=== PATIENT | male | born 1995 ===

== ENCOUNTER 2018-06-24 18:02 | Emergency (ER) | payer MEDICAID ==
[2018-06-24 19:34] VITALS: BP 125/64; PULSE 62; RESP 16; TEMP 98.7; O2SAT 99
--- NOTE | 2018-06-24 19:51 | ED PDOC ---
HPI: Male Pain Time Seen by Provider: 06/24/18 19:33 Chief Complaint (Nursing): Groin Pain Chief Complaint (Provider): Groin Pain History Per: Patient History/Exam Limitations: no limitations Onset/Duration Of Symptoms: Days (few days) Additional Complaint(s): 23 year old male with no past medical history presents to the ED with right sided groin pain. Patient states that he has had this pain for a few days. Patient states that it bothers him when he walks, and any movement that involves lower extremity. Patient denies penile discharge, irritation, trouble urinating, fever, nausea, and vomiting. PMD: Jacquelyn Ruffin MD Past Medical History Reviewed: Historical Data, Nursing Documentation, Vital Signs Vital Signs: Last Vital Signs Temp 98.7 F 06/24/18 19:32 Pulse 62 06/24/18 19:32 Resp 16 06/24/18 19:32 BP 125/64 06/24/18 19:32 Pulse Ox 99 06/24/18 19:32 ROSEMARIE Report Viewed: Yes - Medical History PMH: No Chronic Diseases - Surgical History Surgical History: No Surg Hx - Family History Family History: States: No Known Family Hx - Social History Current smoker - smoking cessation education provided: No Alcohol: None Drugs: Denies - Home Medications Home Medications: Ambulatory Orders Medication Instructions Recorded Cephalexin [Keflex] 500 mg PO Q6H #21 capsule 06/24/18 Ibuprofen [Motrin] 600 mg PO Q6H PRN #30 tab 06/24/18 - Allergies Allergies/Adverse Reactions: Allergies Allergy/AdvReac Type Severity Reaction Status Date / Time No Known Allergies Allergy Verified 06/24/18 19:30 Review of Systems ROS Statement: Except As Marked, All Systems Reviewed And Found Negative Constitutional: Negative for: Fever Gastrointestinal: Negative for: Nausea, Vomiting Genitourinary Male: Positive for: Penile Pain (right sided groin pain ). Negative for: Penile Discharge, Other (trouble urinating, irritation) Physical Exam - Reviewed Nursing Documentation Reviewed: Yes Vital Signs Reviewed: Yes - Physical Exam Appears: Positive for: Well Head Exam: Positive for: ATRAUMATIC, NORMAL INSPECTION, NORMOCEPHALIC Skin: Positive for: Normal Color, Warm, Dry Eye Exam: Positive for: Normal appearance, EOMI, PERRL Cardiovascular/Chest: Positive for: Regular Rate, Rhythm. Negative for: Murmur Respiratory: Positive for: Normal Breath Sounds. Negative for: Respiratory Distress Gastrointestinal/Abdominal: Positive for: Normal Exam, Soft. Negative for: Tenderness Male Genital Exam: Positive for: other (half an inch tender mass to the groin area. Tender to touch, movable. Follicular rash from shaving. Sensitive to touch and redness to area). Negative for: erythema (outer redness, head to legion) Extremity: Positive for: Normal ROM (upper and lower) Neurological/Psych: Positive for: Awake, Alert, Normal Tone - ECG O2 Sat by Pulse Oximetry: 99 (RA) Pulse Ox Interpretation: Normal Medical Decision Making Medical Decision Making: Time: 19:33 Initial Impression: Folliculitis 19:45: Patient given Keflex for home, Motrin 600 mg and instructed to apply warm compression to the area. Drainage instructed to keep surface clean and dry. Advised to follow up with PMD. If symptoms worsen return to the ed. ------ Scribe Attestation: Documented by Francisco Javier Calloway, acting as a scribe for Jo Ann Marti APN. Provider Scribe Attestation: All medical record entries made by the Scribe were at my direction and personally dictated by me. I have reviewed the chart and agree that the record accurately reflects my personal performance of the history, physical exam, medical decision making, and the department course for this patient. I have also personally directed, reviewed, and agree with the discharge instructions and disposition. Disposition - Clinical Impression Clinical Impression: Folliculitis - Patient ED Disposition Is Patient to be Admitted: No Counseled Patient/Family Regarding: Diagnosis, Rx Given - Disposition Disposition: Routine/Home Disposition Time: 19:45 Condition: STABLE Prescriptions: Cephalexin [Keflex] 500 mg PO Q6H #21 capsule Ibuprofen [Motrin] 600 mg PO Q6H PRN #30 tab PRN Reason: Pain, Moderate (4-7) Instructions: Folliculitis (DC) Forms: [employer] [facility] (Micronesian) Print Language: SHOBHA JUDGE Present On Arrival: None
== END 2018-06-24 20:24 | disposition home or self-care (01) ==
LOC: H.ER 18:02
DX: L73.9 Follicular disorder, unspecified (principal)